=== PATIENT | female | born 1960 | race Hispanic/Latino ===

== ENCOUNTER 2023-09-13 22:29 | Emergency (ER) | payer OTHER ==
[2023-09-13] MEDS ORDERED: DIATR MEGLU/DIATRIZOATE SODIUM 30 ML BOTTLE ONE (23:27)
[2023-09-14 00:35] VITALS: BP 115/65; PULSE 66; RESP 17; O2SAT 97
== END 2023-09-14 00:31 | disposition home or self-care (01) ==
LOC: EDH 22:29
DX: T85.598A Other mechanical complication of other gastrointestinal prosthetic devices, implants and grafts, initial encounter (principal); X58.XXXA Exposure to other specified factors, initial encounter; Y93.89 Activity, other specified; Y92.89 Other specified places as the place of occurrence of the external cause; Y99.8 Other external cause status
CPT/HCPCS: 99283; 74018; Q9963

== ENCOUNTER 2023-09-26 10:18 | Emergency (ER) | payer OTHER ==
[~2023-09-26] VITALS: Ht 147.3 cm; Wt 72.6 kg
[2023-09-26] MEDS ORDERED: METOCLOPRAMIDE 10 MG/2 ML VIAL IVP ONE (11:00)
[2023-09-26] MEDS ORDERED: LEVETIRACETAM 500 MG/5 ML SD VIAL IV ONE (11:00)
[2023-09-26] MEDS ORDERED: FAMOTIDINE 20MG VIAL IV ONE (11:00)
[2023-09-26] MEDS ORDERED: LACTATED RINGERS 1000ML 1,000 ML IV ONE (11:00)
[2023-09-26 11:24] LABS: BASOPHILS # (AUTO) 0.04 K/uL (0.00-0.20); BASOPHILS % (AUTO) 0.4 % (0.0-5.0); EOSINOPHILS # (AUTO) 0.18 K/uL (0.00-0.70); HEMATOCRIT 35.5 % (36-48); IMMATURE GRANULOCYTE ABSOLUTE 0.02 K/uL (0-1); LYMPHOCYTES # (AUTO) 2.9 K/uL (1.0-4.8); LYMPHOCYTES % (AUTO) 32.1 % (21.0-51.0); MEAN CORPUSCULAR HEMOGLOBIN 28.6 pg (27.0-33.0); MEAN CORPUSCULAR HGB CONC 32.4 g/dL (32.0-36.0); MEAN CORPUSCULAR VOLUME 88.3 fL (79-99); MONOCYTES # (AUTO) 0.7 K/uL (0.1-1.0); MONOCYTES % (AUTO) 7.7 % (3.0-13.0); NEUTROPHILS # (AUTO) 5.2 K/uL (1.8-7.7); NEUTROPHILS % (AUTO) 57.6 % (40.0-77.0); PLATELET COUNT (AUTO) 248 K/uL (130-400); RED BLOOD CELL COUNT(AUTO) 4.02 MIL/uL (4.00-5.50); RED CELL DISTRIBUTION WIDTH 13.7 % (11.0-15.5)
[2023-09-26 11:35] LABS: CREATININE 0.5 mg/dL (0.5-1.5); POTASSIUM 3.6 mmol/L (3.5-5.1)
[2023-09-26 11:41] LABS: ALBUMIN 3.4 g/dL (3.5-5.0); BILIRUBIN,TOTAL 0.3 mg/dL (0.2-1.0)
[2023-09-26 12:41] LABS: APPEARANCE,URINE CLEAR (CLEAR); BILIRUBIN,URINE NEGATIVE (NEGATIVE); COLOR,URINE LIGHT-YELLOW (YELLOW); GLUCOSE, URINE (UA) NEGATIVE (NEGATIVE); KETONES,URINE NEGATIVE (NEGATIVE); LEUKOCYTE ESTERASE ,URINE 75 Leu/uL (NEGATIVE); NITRATE,URINE NEGATIVE (NEGATIVE); OCCULT BLOOD,URINE NEGATIVE (NEGATIVE); PROTEIN,URINE NEGATIVE (NEGATIVE); UROBILINOGEN,URINE 0.2 mg/dL (0.2-1.0)
[2023-09-26 12:48] LABS: ADD UA MICROSCOPIC YES
[2023-09-26 12:49] LABS: RBC,URINE 0-1 /HPF (0-1); SQUAMOUS EPITHELIAL CELL,UR RARE /HPF (0-2); UNCLASSIFIED CRYSTAL 4 /HPF (None Seen)
[2023-09-26] MEDS ORDERED: IOHEXOL-350 75 ML VIAL IV ONE (13:15)
[2023-09-26] MEDS ORDERED: CEFTRIAXONE 2GM VIAL IVPB ONE (13:30)
[2023-09-26] MEDS ORDERED: FAMO-136 PO (15:53)
[2023-09-26] MEDS ORDERED: CEPH500T PO (15:53)
[2023-09-26] MEDS ORDERED: METO-296 PO (15:53)
[2023-09-26 16:10] VITALS: BP 121/63; PULSE 84; RESP 16; O2SAT 96
== END 2023-09-26 16:59 | disposition home or self-care (01) ==
LOC: EDH 10:18
DX: N39.0 Urinary tract infection, site not specified (principal); I10 Essential (primary) hypertension
CPT/HCPCS: 99285; 74178; 96365; 71045; 96375; 96367; 82550; 84484; 80053; 83690; 85025; 87088; 81001; 36415; 93005; J7120; J3490; J1953; J0696; J2765; Q9967

== ENCOUNTER 2023-11-23 05:38 | Day surgery (SDC) | payer OTHER ==
[2023-11-23] VITALS (11 sets, daily range): BP systolic 111–168; BP diastolic 69–93; PULSE 63–92; RESP 12–16
[~2023-11-23] VITALS: Ht 153.2 cm; Wt 65.1 kg
[~2023-11-23 05:38] MED LIST: CARV12.511 PO; HYDR50TA37 PO; LEVE100S7 PO; LOSA100T59 PO; POLY17PO52 PO
[2023-11-23] MEDS: 0.9%NACL 1000ML 1,000 ML IV ONE (07:04)
[2023-11-23] MEDS ORDERED: PROPOFOL 10 MG/ML 20ML VIAL IV ONE (08:19)
[2023-11-23] MEDS ORDERED: PHENYLEPHRINE HCL 10 MG/ML 1ML VIAL IV ONE (08:20)
== END 2023-11-23 09:50 | disposition home or self-care (01) ==
LOC: ENDO 05:38 → DAH 05:38 → ENDO 09:50
PROVIDERS: ATTEND Internal Medicine Gastroenterology
DX: Z43.1 Encounter for attention to gastrostomy (principal); R13.10 Dysphagia, unspecified; T18.2XXA Foreign body in stomach, initial encounter; K29.60 Other gastritis without bleeding; K59.00 Constipation, unspecified; I10 Essential (primary) hypertension; Z86.73 Personal history of transient ischemic attack (TIA), and cerebral infarction without residual deficits; X58.XXXA Exposure to other specified factors, initial encounter
CPT/HCPCS: 43239; 43247; J7030 ×2; J2704; J2371; A4620; A4215 ×2; A4223; A4657; A7002; A4222; A4221; A4606; J3490